=== PATIENT | male | born 1955 | race Caucasian/White ===

== ENCOUNTER → 2024-09-03 09:26 | Outpatient (REF) | payer MEDICARE, SELFPAY | LOC: PAVMRI 09:26 | PROVIDERS: ATTENDING PHYSICIAN Student in an Organized Health Care Education/Training Program; FAMILY PHYSICIAN Nurse Practitioner Primary Care | DX: Q28.3 Other malformations of cerebral vessels (principal); I72.0 Aneurysm of carotid artery; Q27.9 Congenital malformation of peripheral vascular system, unspecified | CPT/HCPCS: 70544 ==